=== PATIENT | male | born 1965 | race African-American/Black ===

== ENCOUNTER 2025-04-03 05:13 | Inpatient (IN) | payer OTHER ==
[~2025-04-03] VITALS: Ht 185.4 cm; Wt 103.6 kg
[2025-04-03 05:14] VITALS: O2SAT 98
[2025-04-03 06:00] LABS: BASOPHILS % 1.3 % (0.0-2.0); EOSINOPHILS % 5.4 % (0.0-5.0); HEMATOCRIT. 42.9 % (42.0-52.0); HEMOGLOBIN. 14.1 g/dL (14.0-18.0); LYMPHOCYTES % 26.9 % (20.0-50.0); MEAN PLATELET VOLUME 6.6 fl (7.4-10.4); MONOCYTES % 10.6 % (2.0-8.0); NEUTROPHILS % 55.8 % (40.0-76.0); PLATELET 453 x1000/uL (130-400); RED BLOOD CELL COUNT 4.56 mill/uL (4.7-6.1); RED CELL DISTRIBUTION WIDTH 13.3 % (11.6-14.6)
[2025-04-03] MEDS: ACETAMINOPHEN 325MG TABLET PO ONE (06:16)
[2025-04-03 06:27] LABS: CREATININE 1.3 mg/dL (0.6-1.3)
[2025-04-03 06:28] LABS: UREA NITROGEN BLOOD 15 mg/dL (9-23)
[2025-04-03] MEDS: ASPIRIN 325MG EC TABLET PO ONE (07:33)
[2025-04-03 07:50] LABS: TROPONIN I HIGH SENSITIVITY < 4 ng/L (3.0-53)
[2025-04-03 08:50] VITALS: BP 124/86; PULSE 67; RESP 20; TEMP 36.6; O2SAT 99
[2025-04-03] MEDS ORDERED: ONDANSETRON HCL 4MG/2ML INJ IV PRN (09:30)
[2025-04-03] MEDS ORDERED: ACETAMINOPHEN 325MG TABLET PO PRN ×2 (09:30)
[2025-04-03] MEDS ORDERED: CLONIDINE 0.1MG TABLET PO PRN (09:30)
[2025-04-03] MEDS ORDERED: KETOROLAC 15MG/ML VIAL IV PRN (09:30)
[2025-04-03] MEDS ORDERED: MAGNESIUM/ALUMINUM HYDROXIDE/SIMETHICONE 30ML UDC PO PRN (09:30)
[2025-04-03] MEDS ORDERED: DOCUSATE SODIUM 100MG CAPSULE PO PRN (09:30)
[2025-04-03] MEDS ORDERED: IPRATROPIUM/ALBUTEROL 0.5-3(2.5)MG/3ML NEB HHN PRN (09:30)
[2025-04-03] MEDS ORDERED: GUAIFENESIN 200MG/10ML SUGAR FREE UDC PO PRN (09:30)
[2025-04-03] MEDS ORDERED: HYDRALAZINE 20MG/ML VIAL IV PRN (10:15)
[2025-04-03 10:30] VITALS: BP 134/75; PULSE 85; RESP 18; TEMP 36.1956
[2025-04-03] MEDS: ENOXAPARIN 40MG/0.4ML SYR SUBCUT SCH (10:30)
[2025-04-03] MEDS: CLOPIDOGREL 75MG TABLET PO SCH (10:38)
[2025-04-03] MEDS ORDERED: ASPI-1406 PO (11:22)
[2025-04-03] MEDS ORDERED: HYDR12.54 PO (11:22)
[2025-04-03] MEDS ORDERED: CLOP-31 PO (11:22)
[2025-04-03] MEDS ORDERED: LIP40 PO (11:22)
[2025-04-03] MEDS ORDERED: LISI10TA26 PO (11:22)
[2025-04-03 12:50] LABS: TRIGLYCERIDE 80 mg/dL (0-150)
[2025-04-03 12:51] LABS: LDL CHOLESTEROL 106 mg/dL (5-100)
[2025-04-03 12:52] LABS: PHOSPHORUS 4.1 mg/dL (2.5-4.9)
[2025-04-03] MEDS ORDERED: GABAPENTIN 100MG CAPSULE PO SCH (14:00)
[2025-04-03] MEDS ORDERED: ATORVASTATIN CALCIUM 40MG TABLET PO SCH (21:00)
[2025-04-04] MEDS ORDERED: HYDROCHLOROTHIAZIDE 12.5MG CAPSULE PO SCH (09:00)
[2025-04-04] MEDS ORDERED: PANTOPRAZOLE SODIUM 40 MG/VIAL IV SCH (09:00)
[2025-04-04] MEDS ORDERED: MULTIVITAMINS,THER W-MINERALS TABLET PO SCH (09:00)
[2025-04-04] MEDS ORDERED: ASPIRIN 81MG TABLET PO SCH (09:00)
[2025-04-04] MEDS ORDERED: LISINOPRIL 10MG TABLET PO SCH (09:00)
== END 2025-04-03 11:00 | disposition left against medical advice (07) | DRG 552 ==
LOC: ER 05:13 → 7WST 07:26 → EDBEDREQ 07:33 → ENRESERV 08:05
PROVIDERS: ADMIT Hospitalist; ATTEND Hospitalist
DX: M47.812 Spondylosis without myelopathy or radiculopathy, cervical region (principal); G45.9 Transient cerebral ischemic attack, unspecified; I10 Essential (primary) hypertension; E78.5 Hyperlipidemia, unspecified; M25.78 Osteophyte, vertebrae; Z53.29 Procedure and treatment not carried out because of patient's decision for other reasons; R73.9 Hyperglycemia, unspecified; Z79.899 Other long term (current) drug therapy
CPT/HCPCS: 36415; 71045; 80048; 80061; 83036; 83735; 84100; 84484; 85025; 93005; 99285